=== PATIENT | male | born 2000 | race African-American/Black ===

== ENCOUNTER 2024-11-22 23:00 | Emergency (ER) | payer SELFPAY ==
[~2024-11-22] VITALS: Ht 177.8 cm; Wt 72.0 kg
[2024-11-22] MEDS: LORAZEPAM 2MG/ML UD SYRINGE IM NR (23:26)
[2024-11-22] MEDS: DIPHENHYDRAMINE 50MG/ML VIAL IM ONE (23:27)
[2024-11-22] MEDS: HALOPERIDOL LACTATE 5MG/ML VIAL IM ONE (23:27)
[2024-11-22 23:51] LABS: CLARITY URINE CLOUDY (CLEAR); COLOR URINE DARK YELLOW (YELLOW); GLUCOSE URINE NEGATIVE (NEGATIVE); KETONES URINE 3+ (NEGATIVE); LEUKOCYTE ESTERASE URINE TRACE (NEGATIVE); NITRITE URINE NEGATIVE (NEGATIVE); OCCULT BLOOD URINE 3+ (NEGATIVE); PH URINE 6.0 (4.5-8.0); PROTEIN URINE 3+ (NEGATIVE); SPECIFIC GRAVITY URINE 1.040 (1.005-1.030); UROBILINOGEN URINE 1.0 E.U./dL (0.2-1.0)
[2024-11-23 00:07] LABS: BASOPHILS % 0.5 % (0.0-2.0); EOSINOPHILS % 0.0 % (0.0-5.0); HEMATOCRIT. 41.8 % (42.0-52.0); HEMOGLOBIN. 13.8 g/dL (14.0-18.0); LYMPHOCYTES % 7.1 % (20.0-50.0); MEAN PLATELET VOLUME 9.5 fl (7.4-10.4); MONOCYTES % 8.9 % (2.0-8.0); NEUTROPHILS % 83.5 % (40.0-76.0); PLATELET 259 x1000/uL (130-400); RED BLOOD CELL COUNT 4.52 mill/uL (4.7-6.1); RED CELL DISTRIBUTION WIDTH 12.7 % (11.6-14.6)
[2024-11-23 00:11] LABS: *AMPHETAMINES SCREEN URINE NEGATIVE (NEGATIVE)
[2024-11-23 00:12] LABS: *BARBITURATES SCREEN URINE NEGATIVE (NEGATIVE); *BENZODIAZEPINES SCREEN URINE NEGATIVE (NEGATIVE); *COCAINE SCREEN URINE NEGATIVE (NEGATIVE); CANNABINOID URINE SCREEN NEGATIVE (NEGATIVE); ECSTASY MDMA SCREEN URINE NEGATIVE (NEGATIVE); METHADONE URINE SCREEN NEGATIVE (NEGATIVE); OPIATES URINE SCREEN NEGATIVE (NEGATIVE); PHENCYCLIDINE URINE SCREEN NEGATIVE (NEGATIVE)
[2024-11-23 00:24] LABS: CREATININE 1.2 mg/dL (0.6-1.3); ETHANOL BLOOD < 10 mg/dL (<10); UREA NITROGEN BLOOD 22 mg/dL (9-23)
[2024-11-23 00:25] LABS: ASPARTATE AMINOTRANSFERASE 246 IU/L (<34)
[2024-11-23 00:26] LABS: BILIRUBIN DIRECT 1.2 mg/dL (<=3.0); BILIRUBIN TOTAL 3.4 mg/dL (0.1-1.0); PROTEIN TOTAL 7.2 g/dL (6.0-8.3)
[2024-11-23 00:32] VITALS: O2SAT 99
[2024-11-23 00:40] LABS: SQUAMOUS EPITHELIAL CELL URINE 2+ /lpf (RARE/1+)
[2024-11-23 00:41] LABS: RBC URINE 0-2 /hpf (0-2)
[2024-11-23 00:42] LABS: BACTERIA URINE TRACE; COARSE GRANULAR CASTS URINE 0-5 /lpf; MUCUS URINE 2+ /lpf (NONE/TRACE)
[2024-11-23] MEDS: SODIUM CHLORIDE 0.9% 1,000 ML IV ONE (05:41)
[2024-11-23 12:00] VITALS: BP 130/70; PULSE 78; RESP 14; TEMP 36.8; O2SAT 100
== END 2024-11-23 13:31 | disposition home or self-care (01) ==
LOC: ER 23:00
DX: R41.0 Disorientation, unspecified (principal); Z20.822 Contact with and (suspected) exposure to COVID-19; Z79.899 Other long term (current) drug therapy; Z98.890 Other specified postprocedural states
CPT/HCPCS: 80076; 80305; 80048; 81003; 80307; 80329; 80320; 85025; 36415; 96372; 99291; 87426; 96360; J1200; J1630; J2060; Z7610; J7030; 99285; A4606; G0480